=== PATIENT | female | born 1940 | race Caucasian/White ===

== ENCOUNTER 2017-03-10 13:15 | Outpatient (RCR) | payer MEDICARE, BC | END 2017-03-17 11:42 | LOC: MKS.ESL.PT 13:15 | DX: R42 Dizziness and giddiness (principal); R26.0 Ataxic gait | CPT/HCPCS: G8978-GP; G8979-GP; G8980-GP ==

== ENCOUNTER → 2017-03-22 | Outpatient (CLI) | payer MEDICARE, BC | LOC: COL.CARD 10:46 | DX: R41.3 Other amnesia (principal) ==

== ENCOUNTER 2017-07-19 12:30 | Outpatient (RCR) | payer MEDICARE, BC | END 2017-10-05 | disposition still patient (30) | LOC: WSST | DX: R41.3 Other amnesia (principal); G31.84 Mild cognitive impairment of uncertain or unknown etiology; R48.9 Unspecified symbolic dysfunctions | CPT/HCPCS: G9168-GN; G9169-GN ==

== ENCOUNTER → 2018-09-14 | Outpatient (CLI) | payer MEDICARE, BC | LOC: MC.RAD 14:15 | DX: Z12.31 Encounter for screening mammogram for malignant neoplasm of breast (principal) ==

== ENCOUNTER 2019-10-08 11:59 | Emergency (ER) | payer MEDICARE, BC ==
[~2019-10-08] VITALS: Ht 149.9 cm; Wt 50.0 kg
[2019-10-08 12:11] VITALS: TEMP 98.3
[2019-10-08 13:51] VITALS: BP 164/76; PULSE 60
== END 2019-10-08 13:53 | disposition home or self-care (01) ==
LOC: COL.ER 11:59
DX: S00.91XA Abrasion of unspecified part of head, initial encounter (principal); W01.198A Fall on same level from slipping, tripping and stumbling with subsequent striking against other object, initial encounter; Y92.009 Unspecified place in unspecified non-institutional (private) residence as the place of occurrence of the external cause

== ENCOUNTER 2021-04-22 12:13 | Emergency (ER) | payer MEDICARE, BC ==
[~2021-04-22] VITALS: Ht 170.2 cm; Wt 72.7 kg
[2021-04-22 12:14] VITALS: TEMP 98.8
[2021-04-22 13:19] LABS: BASO # 0.1 K/mm3 (0.0-0.2); BASO % 0.8 % (0.0-2.0); EOS # 0.2 K/mm3 (0.0-0.7); EOS % 3.3 % (0-4.0); GRAN # 2.6 K/mm3 (1.4-6.5); GRAN % 41.7 % (42.2-75.2); HEMATOCRIT 46.2 % (37.0-47.0); HEMOGLOBIN 15.6 g/dl (12.5-16.0); LYMPH # 2.7 K/mm3 (1.2-3.4); LYMPH % 43.2 % (20.0-51.0); MEAN CELL VOLUME 92 fl (80.0-100.0); MEAN CORPUSCULAR HEMOGLOBIN 31 pg (27.0-31.0); MEAN CORPUSCULAR HGB CONC 34 g/dl (33.0-37.0); MEAN PLATELET VOLUME 10.1 fl (7.4-10.4); MONO # 0.7 K/mm3 (0.1-0.6); MONO % 10.8 % (1.7-9.3); PLATELET COUNT 167 K/mm3 (130-400); RED BLOOD COUNT 5.02 M/mm3 (4.10-5.30)
[2021-04-22 13:38] LABS: ALBUMIN 3.8 gm/dL (3.4-4.8); BILIRUBIN,TOTAL 0.6 mg/dL (0.2-1.2); CALCIUM 9.9 mg/dL (8.4-10.2); CREATININE, serum 1.12 mg/dL (0.57-1.11); POTASSIUM 4.1 mmol/L (3.5-4.5); TOTAL PROTEIN 7.7 gm/dL (6.2-8.1)
[2021-04-22 13:58] LABS: PROLACTIN 5.1 ng/mL (5.18-26.53); TROPONIN-I 0.011 ng/mL (0.00-0.033)
[2021-04-22 14:50] VITALS: BP 160/70; PULSE 80
== END 2021-04-22 15:00 | disposition home or self-care (01) ==
LOC: COL.ER 12:13
PROVIDERS: Emergency Medicine
DX: R40.4 Transient alteration of awareness (principal); R55 Syncope and collapse; G30.9 Alzheimer's disease, unspecified; F02.80 Dementia in other diseases classified elsewhere, unspecified severity, without behavioral disturbance, psychotic disturbance, mood disturbance, and anxiety
CPT/HCPCS: J7030

== ENCOUNTER → 2023-05-09 | Outpatient (REF) | payer MEDICARE, BC ==
[~2023-05-09] MED LIST: CEFTIN500 MG PO
== END ==
LOC: ZCOL.LAB 12:39
DX: G40.409 Other generalized epilepsy and epileptic syndromes, not intractable, without status epilepticus (principal)